=== PATIENT | male | born 1965 | race Caucasian/White ===

== ENCOUNTER 2016-09-24 19:20 | Emergency (ER) | payer SELFPAY ==
[~2016-09-24] VITALS: Ht 177.8 cm; Wt 63.5 kg
[2016-09-24 23:30] VITALS: BP 118/72
--- NOTE | 2016-09-25 14:03 | Emergency Room Report ---
History of Present Illness General Chief Complaint: Alcohol Intoxication Source: EMS Present Illness HPI The patient is a 51-year-old male in by ambulance for supposed alcohol intoxication. The patient is unable to provide any information at this time as he is asleep. The patient was found sleeping on the ground. Allergies: Coded Allergies: No Known Allergies (Unverified , 09/24/16) Patient History Past Medical History: see triage record Pertinent Family History: none Social History: Reports: alcohol use Reviewed Nursing Documentation: PMH: Agreed, PSxH: Agreed Nursing Documentation-PMH Hx Gastrointestinal Problems: Yes - CIRRHOSIS Review of Systems All Other Systems: negative except mentioned in HPI Physical Exam Vital Signs Date Time Temp Pulse Resp B/P Pulse Ox O2 Delivery O2 Flow Rate FiO2 09/24/16 19:15 98.1 92 16 118/72 98 Room Air Sp02 EP Interpretation: reviewed, normal General Appearance: no apparent distress, alert, GCS 15, non-toxic, lethargic Head: normocephalic, atraumatic Eyes: bilateral eye PERRL, bilateral eye normal inspection ENT: hearing grossly normal, normal pharynx, no angioedema, normal voice Respiratory: chest non-tender, lungs clear, normal breath sounds, speaking full sentences Cardiovascular #1: regular rate, rhythm, no edema Gastrointestinal: normal bowel sounds, no guarding, other - cholostomy bag in place Rectal: deferred Genitourinary: normal inspection, no CVA tenderness Musculoskeletal: back normal, gait/station normal, normal range of motion, non- tender Neurologic: alert, responsive, motor strength/tone normal Psychiatric: judgement/insight normal, memory normal, mood/affect normal, no suicidal/homicidal ideation Skin: normal color, no rash, warm/dry, well hydrated Lymphatic: no adenopathy Medical Decision Making PA Attestation Dr. Mata is my supervising physician. Patient management was discussed with my supervising physician Diagnostic Impression: Primary Impression: Acute alcoholic intoxication ER Course The patient is a 51-year-old male in by ambulance for supposed alcohol intoxication. DDx considered but not limited to: acute alcohol intoxication, hepatic encephalopathy, drug overdose, hypoglycemia, psychosis Physical exam: Vitals are within normal limits. No apparent distress. Patient is lethargic. Head is normocephalic atraumatic. Pupils are equally round and reactive to light The patient is arousable by touch or name. Lungs are clear to auscultation bilaterally. Colostomy bag in place. Abd is soft and non tender. No guarding. Otherwise exam is unremarkable The patient is given time to rest in the emergency department. Upon reevaluation, pt is alert and oriented. The patient is able to ambulate well and is asking to leave at this time. The patient be discharged home and given ER precautions. Patient was given advice on alcohol addiction Last Vital Signs Date Time Temp Pulse Resp B/P Pulse Ox O2 Delivery O2 Flow Rate FiO2 09/24/16 23:30 98.1 92 16 118/72 98 Room Air Status: improved Disposition: HOME, SELF-CARE Condition: Improved Referrals: NOT CHOSEN IPA/MD,REFERRING (PCP) Patient Instructions: Alcohol Intoxication Additional Instructions: My findings were discussed with the patient. Patient was counseled to seek help for alcohol abuse. Patient is stable for discharge, is alert and oriented, and can ambulate without difficulty. Patient is asked to return to ED if he experiences chest pain, abdominal pain, dizziness, falls down, or for any reason. URI RAMESH Sep 25, 2016 14:02
== END 2016-09-24 23:30 | disposition home or self-care (01) ==
LOC: EDBD 19:20 → EMR 21:18
DX: F10.129 Alcohol abuse with intoxication, unspecified (principal); K70.30 Alcoholic cirrhosis of liver without ascites
CPT/HCPCS: 99284